=== PATIENT | female | born 1995 | race Caucasian/White ===

== ENCOUNTER 2018-12-26 04:10 | Inpatient (IN) | payer OTHER ==
[2018-12-26] MEDS ORDERED: ELECTROLYTE-148 SOLN 1,000 ML IV SCH (04:30)
[2018-12-26 05:38] LABS: HEMOGLOBIN 10.4 GM/dL (10.7-15.3); MCH 25.7 pg (25.7-33.7); RBC 4.04 M/mm3 (3.60-5.2); RDW 17.2 % (11.6-15.6)
[2018-12-26 05:43] LABS: BASO % 0.3 % (0-2.0); EOS % 0.9 % (0-4.5); LYMPH % 21.7 % (8-40); MCHC 32.5 g/dl (32.0-36.0); MEAN CELL VOLUME 79.2 fl (80-96); MEAN PLT VOLUME 8.4 fl (7.5-11.1); MONO % 5.4 % (3.8-10.2); NEUT % 71.7 % (42.8-82.8); PLATELET COUNT 288 K/MM3 (134-434); WHITE BLOOD COUNT 11.6 K/mm3 (4.0-10.0)
[2018-12-26 06:02] LABS: BLOOD UREA NITROGEN 16.2 mg/dL (7-18); CALCIUM 8.8 mg/dL (8.5-10.1); CREATININE 0.7 mg/dL (0.55-1.3)
[2018-12-26 06:22] VITALS: BMI 42.5
[2018-12-26 06:52] LABS: INR 1.03 (0.83-1.09); PROTHROMBIN TIME (PATIENT) 12.2 SEC (9.7-13.0)
[2018-12-26 06:54] LABS: ACTIVATED PTT 29.8 SECONDS (25.2-36.5)
--- NOTE | 2018-12-26 09:30 | HP ---
Past Medical History - Primary Care Physician PCP:: Ena Fall - Admission Chief Complaint: 23yo P0 with twins at 34.2wks came to L&D with c/o LUQ pain, no VB, no LOF, positive FM, no ctxns History of Present Illness: 1. Di/Di twin gestation with good dating 2. h/o c/section for NRFHR with subsequent demise - Stillborn History Source: Patient, Medical Record Limitations to Obtaining History: No Limitations - Past Medical History Cardiovascular: Yes: Murmur (benighn) Renal/: Yes: Hematuria (2018 negative w/up) ...: 2 ...Para: 1 ...Term: 1 ...: 0 ...Spon : 0 ...Induced : 0 ...Multiple Gestation: 1 ...LMP: 04/30/18 ... Weeks Gestation by Dates: 34.1 ...EDC by Dates: 02/04/19 - Past Surgical History Past Surgical History: Yes: Cholecystectomy, Hx Myomectomy: No Hx Transabdominal Cerclage: No - Smoking History Smoking history: Never smoked Have you smoked in the past 12 months: No - Alcohol/Substance Use Hx Alcohol Use: No Home Medications - Allergies Allergies/Adverse Reactions: Allergies Allergy/AdvReac Type Severity Reaction Status Date / Time No Known Allergies Allergy Verified 12/26/18 05:01 - Home Medications Home Medications: Ambulatory Orders Prenat 115/Iron Fum/Folic/Dss [ 19 Tablet] 1 tab PO DAILY 12/26/18 Family Disease History - Family Disease History Family Disease History: Other: Mother (SLE - ) Review of Systems - Review of Systems Constitutional: reports: No Symptoms Eyes: reports: No Symptoms HENT: reports: No Symptoms Neck: reports: No Symptoms Cardiovascular: reports: No Symptoms Respiratory: reports: No Symptoms Gastrointestinal: reports: No Symptoms Genitourinary: reports: No Symptoms Breasts: reports: No Symptoms Reported Musculoskeletal: reports: No Symptoms Integumentary: reports: No Symptoms Neurological: reports: No Symptoms Endocrine: reports: No Symptoms Hematology/Lymphatic: reports: No Symptoms Psychiatric: reports: No Symptoms Physical Exam - Maternity Vital Signs: Vital Signs Temperature 98.6 F 12/26/18 09:00 Pulse Rate 69 12/26/18 09:00 Respiratory Rate 20 06/29/19 09:00 Blood Pressure 128/78 12/26/18 09:00 O2 Sat by Pulse Oximetry (%) Constitutional: Yes: Well Nourished, No Distress, Calm Eyes: Yes: WNL HENT: Yes: WNL, Atraumatic, Normocephalic Neck: Yes: WNL, Supple, Trachea Midline Cardiovascular: Yes: WNL, Regular Rate and Rhythm Lungs: Clear to auscultation Breast(s): Yes: WNL - Abdominal Exam/OB Number of Fetuses: Multiple (Di/Di twins) Contractions: No Monitor Mode: External (Category 1 both) Heart Rate (range): 140s Category: I Accelerations: Uniform Decelerations: None - Vaginal Exam/OB Vaginal Bleediing: No Dilatation (cm): 0 Effacement (%): 0 Amniotic Membrane Status: Intact Station: -4 - Physical Exam Musculoskeletal: Yes: WNL Extremities: Yes: WNL Edema: No Integumentary: Yes: WNL Deep Tendon Reflex Grade: Normal +2 ...Motor Strength: WNL Psychiatric: Yes: WNL, Alert, Oriented - Labs Lab Results: CBC, BMP 12/26/18 05:15 12/26/18 05:15 Imaging - Results Ultrasound: Other (Reported verbally by Radiolody attending Twin A: GUILHERME 6.5 Twin B: GUILHERME 4.9) Assessment/Plan 23yo P1000 @ 34.2 weeks with twin gestation MF status reassuring in light of low GUILHERME finding will monitor NST Q shift on antepartum floor and Repeat official US by MFM on Friday am Case d/w who suggested to wait till Friday for official US and not to treat with steroids in case patient might need to be delivered prematurely since overall antepartum testing is currently reassuring
[2018-12-26] MEDS ORDERED: ACETAMINOPHEN 325 MG TABLET (FP) PO PRN (09:38)
[2018-12-26] MEDS ORDERED: D5W-LR W/ 20 UNITS OXYTOCIN 1,000 ML IV SCH (09:45)
[2018-12-26] MEDS: NORMAL SALINE FLUSH 0.9% 2.5 ML SYRINGE IVPUSH SCH ×2 (13:00→23:44)
[2018-12-27 07:47] LABS: BASO % 0.3 % (0-2.0); EOS % 1.7 % (0-4.5); HEMATOCRIT 32.9 % (32.4-45.2); HEMOGLOBIN 10.7 GM/dL (10.7-15.3); LYMPH % 22.3 % (8-40); MCH 26.1 pg (25.7-33.7); MCHC 32.6 g/dl (32.0-36.0); MEAN CELL VOLUME 79.8 fl (80-96); MEAN PLT VOLUME 8.6 fl (7.5-11.1); MONO % 6.6 % (3.8-10.2); NEUT % 69.1 % (42.8-82.8); RBC 4.12 M/mm3 (3.60-5.2); RDW 17.1 % (11.6-15.6); WHITE BLOOD COUNT 9.6 K/mm3 (4.0-10.0)
--- NOTE | 2018-12-27 08:12 | PN ---
Ante-Partal Exam - Subjective Subjective: Patient reports no acute complaints FM x 2 No VB or pain No chest pain, shortness of breath Vital Signs: Vital Signs Temperature 98.8 F 12/27/18 04:00 Pulse Rate 63 12/27/18 04:00 Respiratory Rate 20 12/27/18 04:00 Blood Pressure 124/57 L 12/27/18 04:00 O2 Sat by Pulse Oximetry (%) Bleeding: No Headache: No Visual changes: No Right upper quadrant pain: No - Contractions Contractions: No - Exam during Labor Heart Rate: 130 (x2) Variability: Moderate Category: I Monitor Accelerations: Present Monitor Decelerations: None - Assessment/Plan Assessment/Plan: 23 yo @ 35+ wks di/di twin gestation, suspect oligohydramnios for observation 1. No signs of labor 2. Category I FHT x 2 3. Will plan for repeat ultrasound and evaluation by MFM on Friday Will continue to monitor
[2018-12-27 08:56] LABS: PLATELET COUNT 277 K/MM3 (134-434)
[2018-12-27] MEDS: NORMAL SALINE FLUSH 0.9% 2.5 ML SYRINGE IVPUSH SCH ×2 (10:00→23:04)
[2018-12-27 11:29] LABS: ANISOCYTOSIS 0; HELMET CELLS 0; HOWELL-JOLLY BODIES 0; MACROCYTOSIS 0; OVALOCYTE 0; PLATELET ESTIMATE NORMAL; ROULEAU 0; SICKELED CELLS 0; TARGET CELLS 0; TEAR DROP CELLS 0; TOXIC GRANULATION 0
[2018-12-27] MEDS ORDERED: SENNOSIDES/DOCUSATE COMBO (SENNA PLUS) TABLET (UD) PO PRN (22:00)
[2018-12-28 08:58] VITALS: BP 117/78; PULSE 72; TEMP 98.6
[2018-12-28] MEDS: NORMAL SALINE FLUSH 0.9% 2.5 ML SYRINGE IVPUSH SCH (10:41)
--- NOTE | 2018-12-28 11:03 | PN ---
Ante-Partal Exam - Subjective Subjective: No complaints Vital Signs: Vital Signs Temperature 98.6 F 12/28/18 08:00 Pulse Rate 72 12/28/18 08:00 Respiratory Rate 18 12/28/18 08:00 Blood Pressure 117/78 12/28/18 08:00 O2 Sat by Pulse Oximetry (%) - Contractions Contractions: No - Exam during Labor Heart Rate: 140 (x2) Category: I Monitor Accelerations: Present Monitor Decelerations: None - Assessment/Plan Assessment/Plan: 23 yo @ 34+ wk di/di twins admitted for suspected oligo s/p repeat BPP and ultrasound today; MVP 5.7 and 6.6 respectively Reassuring tracing Reassuring BPP Plan for DC home with close monitoring Vaginal bleeding and labor precautions reviewed Kick counts reviewed
== END 2018-12-28 13:40 | disposition home or self-care (01) | DRG 566 ==
LOC: JDEL 04:10 → JLDR 04:10 → EDSTATUS 04:56 → J3W 09:51
PROVIDERS: ADMIT Obstetrics & Gynecology; ATTEND Obstetrics & Gynecology
DX: O30.003 Twin pregnancy, unspecified number of placenta and unspecified number of amniotic sacs, third trimester (principal); Z3A.34 34 weeks gestation of pregnancy
CPT/HCPCS: 36415; 80048; 85025; 85610; 85730; 86593; 86850; 86900; 86901

== ENCOUNTER 2019-01-15 06:05 | Inpatient (IN) | payer OTHER ==
[2019-01-15] MEDS ORDERED: ELECTROLYTE-148 SOLN 1,000 ML IV SCH (07:30)
[2019-01-15] MEDS ORDERED: CITRIC ACID/SODIUM CITRATE 30 ML UNIT-DOSE CUP PO ONE (07:30)
[2019-01-15] MEDS ORDERED: ELECTROLYTE-148 SOLN 500 ML IV ONE (07:30)
[2019-01-15 08:37] VITALS: BMI 44.1
[2019-01-15] MEDS ORDERED: ONDANSETRON 4 MG/2 ML VIAL IVPUSH PRN (09:03)
[2019-01-15] MEDS ORDERED: morphine SULFATE/PF 0.5 MG/ML (2cc Syringe - QUVA) EP ONE (09:03)
[2019-01-15] MEDS ORDERED: ceFAZolin SODIUM 1 GM VIAL ONE (09:13)
--- NOTE | 2019-01-15 09:19 | HP ---
Past Medical History - Admission History of Present Illness: 23 yo @ 37 1/7 wks by first trimester ultrasound, EDC 02/04/2019 complicated by: 1. Spontaneous dichorionic / diamniotic twin gestation Most recent EFW: 01/01/2019 A: 2628g 5-13 (66%ile); B: 2820g 6-3 (78%ile) 7% weight discordance 2. Obesity - starting BMI 36 STOP BANG score 2 (low risk) Early GCT WNL (116) Elevated GCT at 26 wks, normal GTT 42 lb total weight gain 3. Prior delivery 4. Prior full term loss (40 wks) 5. Travel to [place] at 11 wks Negative Zika Panel 6. BP elevation in first trimester negative PEC labs, early 24 H urine 201 (14 wks) BPs within normal range in second and third trimester Patient presents for scheduled repeat delivery, per [facility] recommendation at 37-38 wks. She reports movement, denies leakage of fluid or vaginal bleeding. History Source: Patient Limitations to Obtaining History: No Limitations - Past Medical History Cardiovascular: Yes: Murmur (benighn) Pulmonary: No: Asthma Renal/: Yes: Hematuria (2018 negative w/up) ...: 2 ...Para: 1 ...Term: 1 ...: 0 ...Spon : 0 ...Induced : 0 ...Multiple Gestation: 0 ...LMP: 04/30/18 ... Weeks Gestation by Dates: 37.1 ...EDC by Dates: 02/04/19 ...EDC by Sono: 02/04/19 Heme/Onc: No: Anemia - Past Surgical History Past Surgical History: Yes: Cholecystectomy, Hx Myomectomy: No Hx Transabdominal Cerclage: No - Smoking History Smoking history: Never smoked Have you smoked in the past 12 months: No - Alcohol/Substance Use Hx Alcohol Use: No History of Substance Use: reports: None - Social History History of Recent Travel: Yes (11 weeks, negative zika panel ) Home Medications - Allergies Allergies/Adverse Reactions: Allergies Allergy/AdvReac Type Severity Reaction Status Date / Time No Known Allergies Allergy Verified 12/26/18 05:01 - Home Medications Home Medications: Ambulatory Orders Prenat 115/Iron Fum/Folic/Dss [ 19 Tablet] 1 tab PO DAILY 12/26/18 Family Disease History - Family Disease History Family Disease History: Other: Mother (SLE - ) Physical Exam - Maternity Vital Signs: Vital Signs Temperature 98.5 F 01/15/19 06:15 Pulse Rate 63 01/15/19 06:15 Respiratory Rate 20 01/15/19 06:15 Blood Pressure 138/68 01/15/19 06:15 O2 Sat by Pulse Oximetry (%) Constitutional: Yes: Well Nourished, No Distress, Calm Cardiovascular: Yes: Regular Rate and Rhythm Lungs: Clear to auscultation - Abdominal Exam/OB Number of Fetuses: Multiple Category: I - Physical Exam Edema: Yes Edema: LLE: 1+, RLE: 1+ Psychiatric: Yes: Alert, Oriented - Labs Lab Results: PNL: O positive, antibody negative; RPR NR; HIV negative; HBsAg negative; HCV negative; Hg Arya AA; Sequential 1@2 wnl; Inheritest WNL; early GCT WNL; elevated 26 wk GCT, normal GTT; Parvo immune; GBS negative Hemorrhage Risk Assessment - Risk Factors Medium Risk Factors: Yes: Prior , uterine surgery,or multiple laparotomies, Multiple gestation Risk Score: 2 Risk Level: High Risk Assessment/Plan 23 yo @ 37 1/7 wks, for repeat delivery 1. Admit to L&D 2. Routine labs reviewed 3. Ancef salon customer experience specialist to OR 4. Plan for Lovenox PP for DVT prophylaxis 5. Category I FHT 6. Will proceed to OR
[2019-01-15] MEDS ORDERED: OXYTOCIN 20 UNITS in 0.9% NS 20 UNIT/1,000 ML INFUS.BAG IV ONE (10:07)
[2019-01-15] MEDS ORDERED: OXYTOCIN 10 UNITS/ML VIAL ONE (10:09)
[2019-01-15] MEDS ORDERED: oxyCODONE HCL 5 MG TABLET PO PRN ×2 (10:55)
[2019-01-15] MEDS ORDERED: METHYLERGONOVINE MALEATE 0.2 MG/1 ML AMP IM PRN (10:55)
[2019-01-15] MEDS ORDERED: OXYTOCIN 20 UNITS in 0.9% NS 20 UNIT/1,000 ML INFUS.BAG IV SCH (11:00)
[2019-01-15 11:36] LABS: VENOUS PC02 42.5 mmHg (41-51); VENOUS PO2 34.9 mmHg (30-40)
[2019-01-15 11:40] LABS: ARTERIAL BLD GAS O2 SATURATION 36.7 % (95-98); ARTERIAL BLOOD GAS BASE EXCESS -4.4 meq/l (-2-2); ARTERIAL BLOOD GAS PCO2 56.2 mmHg (35-45); ARTERIAL BLOOD GAS pH 7.25 (7.35-7.45)
[2019-01-15 11:44] LABS: VENOUS PC02 44.1 mmHg (41-51)
[2019-01-15 11:47] LABS: ARTERIAL BLD GAS O2 SATURATION 23.1 % (95-98); ARTERIAL BLOOD GAS BASE EXCESS -3.6 meq/l (-2-2); ARTERIAL BLOOD GAS PCO2 56.6 mmHg (35-45); ARTERIAL BLOOD GAS pH 7.26 (7.35-7.45)
[2019-01-15 11:57] LABS: VENOUS PH 7.33 (7.31-7.41)
[2019-01-15 11:59] LABS: VENOUS PH 7.32 (7.31-7.41); VENOUS PO2 28.8 mmHg (30-40)
[2019-01-15 12:09] LABS: ARTERIAL BLOOD GAS PO2 16.9 mmHg (80-105)
[2019-01-15 12:10] LABS: ARTERIAL BLOOD GAS PO2 21.4 mmHg (80-105)
[2019-01-15] MEDS ORDERED: IBUPROFEN 800 MG/8 ML IJ IVPB ONE (13:28)
[2019-01-15] MEDS: IBUPROFEN 800 MG/8 ML IJ IVPB PRN (13:50)
--- NOTE | 2019-01-15 15:57 | PN ---
Delivery - Delivery Type of Anesthesia: Spinal Episiotomy/Laceration: None EBL (cc): 600 Delivery, Single - [place] Feeding Plan Initial Plan: Elected not to breastfeed exclusively throughout hospitalization Delivery, Multiple Births - Stages of Labor Delivery Baby "A" Date: 01/15/19 Time: 10:13 Delivery Baby "B" Date: 01/15/19 Time: 10:15 - Condition of Multiple Births 1 (A) Reinforcing Metal Worker/M48 M60 Armor Crewman Present: Yes Reinforcing Metal Worker: Brock Arambula Infant Gender: Male Weight: 6 lb 11 oz Total Hours ROM (HRS/MINS): 4 MIN [place] 2 (B) Reinforcing Metal Worker/M48 M60 Armor Crewman Present: Yes Reinforcing Metal Worker: Brock Arambula Infant Gender: Male Weight: 7 lb 4 oz Position: Right, OT Total Hours ROM (HRS/MINS): 2 MIN Placenta: Yes: Expressed - 1 Minute Score: 9 5 Minutes Score: 9 2 (B) 1 Minute Score: 9 2 (B) 5 Minutes Score: 9 Remarks - Remarks Remarks: Surgeon: David | Assist: Eufemia | Anesthesia : Joyo EBL: 600 Findings: A: male, Transverse back down, verted to breech, 9,9; wt 6lb 11 o, 19.5 inches, nuchal cord B male, cephalic, ROT, 9,9; wt 7 lb 4 oz; 19.5 inches, nuchal cord; Adhesions from omentum to anterior abdominal wall and uterus, uterine window noted, normal bilateral fallopian tubes and ovaries Dictation: [id number]
[2019-01-16] MEDS: IBUPROFEN 800 MG/8 ML IJ IVPB PRN (05:14)
[2019-01-16 08:35] LABS: BASO % 0.2 % (0-2.0); HEMATOCRIT 30.7 % (32.4-45.2); MCH 25.4 pg (25.7-33.7); MCHC 32.6 g/dl (32.0-36.0); MEAN CELL VOLUME 77.9 fl (80-96); MEAN PLT VOLUME 8.7 fl (7.5-11.1); MONO % 6.8 % (3.8-10.2); PLATELET COUNT 235 K/MM3 (134-434); RBC 3.93 M/mm3 (3.60-5.2); RDW 17.5 % (11.6-15.6); WHITE BLOOD COUNT 10.6 K/mm3 (4.0-10.0)
[2019-01-16] MEDS: ENOXAPARIN NA (PORCINE) 40 MG/0.4 ML DISP.SYRIN SQ SCH (09:39)
[2019-01-16] MEDS: PRENATAL VITAMINS W/ FOLIC ACID TABLET (FP) PO SCH (10:00)
[2019-01-16] MEDS ORDERED: DIPHTH,PERTUSS(ACELL),TET 0.5 ML DISP.SYRIN IM ONE (10:00)
--- NOTE | 2019-01-16 10:11 | PN ---
Post Progress Note - Subjective Subjective: Patient without acute complaints. Reports tolerating oral intake without nausea or vomiting. Ambulating without dizziness. Denies fevers or chills. Pain well controlled with oral pain medication. Pumping/breast feeding without issue. Passing flatus. Post Day: 1 Type of Delivery: Repeat C/S Vital Signs: Vital Signs Temperature 98.7 F 01/16/19 08:00 Pulse Rate 69 01/16/19 08:00 Respiratory Rate 18 01/16/19 08:00 Blood Pressure 130/69 01/16/19 08:00 O2 Sat by Pulse Oximetry (%) 99 01/15/19 13:55 Breast Exam: Yes: Soft Uterus: Yes: Fundus Firm, Fundus below umbilicus, Non-tender Incision: Yes: Dressing dry and intact Abdomen/GI: Yes: Abdomen soft, Passing flatus, Tolerating PO Lochia: Yes: Rubra Lochia, amount: Small Extremities: Yes: Calves non-tender Perineum: Yes: Intact Activity: Ambulating - Labs Labs: CBC WBC 10.6 K/mm3 (4.0-10.0) H 01/16/19 07:15 RBC 3.93 M/mm3 (3.60-5.2) 01/16/19 07:15 Hgb 10.0 GM/dL (10.7-15.3) L 01/16/19 07:15 Hct 30.7 % (32.4-45.2) L 01/16/19 07:15 MCV 77.9 fl (80-96) L 01/16/19 07:15 MCH 25.4 pg (25.7-33.7) L 01/16/19 07:15 MCHC 32.6 g/dl (32.0-36.0) 01/16/19 07:15 RDW 17.5 % (11.6-15.6) H 01/16/19 07:15 Plt Count 235 K/MM3 (134-434) 01/16/19 07:15 MPV 8.7 fl (7.5-11.1) 01/16/19 07:15 Absolute Neuts (auto) 8.3 K/mm3 (1.5-8.0) H 01/16/19 07:15 Neutrophils % 78.0 % (42.8-82.8) 01/16/19 07:15 Lymphocytes % 14.0 % (8-40) 01/16/19 07:15 Monocytes % 6.8 % (3.8-10.2) 01/16/19 07:15 Eosinophils % 1.0 % (0-4.5) 01/16/19 07:15 Basophils % 0.2 % (0-2.0) 01/16/19 07:15 Nucleated RBC % 0 % (0-0) 01/16/19 07:15 Assessment/Plan 23yo female s/p repeat LT C/S, doing well stable, afebrile. The pt is asymptomatic for s/sxs of anemia. care instructions reviewed. Continue routine postop care. Ambulation encouraged.
--- NOTE | 2019-01-16 10:42 | OP ---
DATE OF OPERATION: 01/15/2019 ATTENDING PHYSICIAN RESPONSIBLE FOR SIGNING REPORT: Nicolette Rollins MD SURGEON: Nicolette Rollins MD RAYMOND MILL OPERATOR: Ena Fall MD ANESTHESIOLOGIST: Tim Judge MD ANESTHESIA TYPE: Spinal. SURGERY: Repeat delivery via Pfannenstiel skin incision of twins. URINE OUTPUT: 600 mL. FINDINGS: Baby A male, transverse, back down, inverted to breech, Apgars 9, 9; weight 6 pounds, 1 ounce, 19.5 inches; nuchal cord noted. Baby B, cephalic, ROT position, Apgars 9, 9, weight 7 pounds 4 ounces, 19.5 inches, nuchal cord noted. Adhesions noted from omentum to anterior abdominal wall and uterus. Uterine window was noted on exam, and bilateral fallopian tubes and ovaries normal. INDICATIONS: Patient is a 23-year-old 2, para 0, with prior for repeat delivery of twins at 37 weeks per Maternal [facility] recommendations. She was counseled regarding risks, benefits, alternatives, and complications of procedure including infection, bleeding, damage to surrounding organs. She expressed understanding and was brought to the operating room. DESCRIPTION OF PROCEDURE: When anesthesia was found to be adequate, patient was prepped and draped in a normal sterile fashion, placed in dorsal supine position with a leftward tilt. An approximately 11-cm skin incision was made along the previous scar and carried down to the underlying rectus fascia using the Bovie electrocautery. The fascial incision was nicked in the midline, extended laterally using Bovie electrocautery. Anterior portion of the fascial incision was tented up using Jamison clamps, resected off the underlying rectus muscles using the Peres scissors. Attention was brought to the superior portion of the incision, where in similar fashion, it was tented up using Jamison clamps, and dissected off the underlying rectus muscles using the Peres scissors. The rectus muscles were in the midline with the knife. The peritoneum was entered sharply using Metzenbaum scissors. Dense adhesions noted from the omentum to the anterior abdominal wall , which were taken down using Bovie electrocautery. Manish O Retractor was placed in the abdominal cavity for proper visualization. Uterus was noted to have a window in the lower uterine segment. Hysterotomy was performed. Clear fluid was noted. Infant was noted to be transverse, back down, inverted to breech. Breech was delivered; shoulders, body, and head were delivered without difficulty. Cord was clamped and cut. Cord blood and cord gasses were collected and sent, and infant was handed to waiting NICU staff. Attention was brought to the 2nd sac. Amniotomy was performed. Clear fluid was noted. was found to be cephalic position. Infants head was brought to the hysterotomy site followed by shoulders and body without difficulty. Nuchal cord noted and reduced. Cord blood and cord gasses were collected and sent. was handed to waiting NICU staff. The placenta was manually extracted. The uterus was cleared of all clot and debris. The uterus was closed using 0 Biosyn in a running layer, 2nd layer as an imbricating layer. Good hemostasis was noted. Copious irrigation was performed. Bilateral fallopian tubes and ovaries were noted to be normal appearing. The peritoneum was then reapproximated using 2-0 Biosyn in a running fashion. Rectus muscles were reapproximated using 0 Biosyn in an interrupted fashion. The fascia was closed using 0 Vicryl in a running fashion. The subcutaneous fat was closed using 2-0 Vicryl in an interrupted fashion. The skin was reapproximated using the V-Loc suture. The patient tolerated the procedure well. Estimated blood loss was 600 mL. Patient was brought to the recovery room in stable condition. NICOLETTE ROLLINS M.D. [id number] MTDD
[2019-01-16] MEDS ORDERED: BISACODYL 10 MG SUPP.RECT RC PRN (10:55)
[2019-01-16] MEDS: IBUPROFEN 600 MG TABLET (FP) PO PRN ×2 (13:27→22:01)
[2019-01-16] MEDS: ACETAMINOPHEN 325 MG TABLET (FP) PO PRN ×2 (13:28→22:00)
[2019-01-16] MEDS: SIMETHICONE 80 MG TAB.CHEW (FP) PO PRN ×2 (13:29→22:01)
[2019-01-16] MEDS: SENNOSIDES/DOCUSATE COMBO (SENNA PLUS) TABLET (UD) PO PRN (22:01)
[2019-01-17] MEDS: IBUPROFEN 600 MG TABLET (FP) PO PRN ×2 (08:05→18:36)
[2019-01-17] MEDS: SIMETHICONE 80 MG TAB.CHEW (FP) PO PRN ×2 (08:06→18:37)
[2019-01-17] MEDS: ACETAMINOPHEN 325 MG TABLET (FP) PO PRN ×2 (08:06→18:37)
--- NOTE | 2019-01-17 08:11 | PN ---
Post Progress Note - Subjective Subjective: Patient without acute complaints. Reports tolerating oral intake without nausea or vomiting. Ambulating without dizziness. Denies fevers or chills. Pain well controlled with oral pain medication. without difficulty. Passing flatus. Post Day: 1 Type of Delivery: Repeat C/S Vital Signs: Vital Signs Temperature 98.7 F 01/16/19 21:50 Pulse Rate 74 01/16/19 21:50 Respiratory Rate 20 01/16/19 21:50 Blood Pressure 140/87 01/16/19 21:50 O2 Sat by Pulse Oximetry (%) 99 01/15/19 13:55 Breast Exam: Yes: Soft Uterus: Yes: Fundus Firm, Fundus below umbilicus Incision: Yes: Sutures intact. No: Redness, Oozing Abdomen/GI: Yes: Abdomen soft, Tender (mild incisional). No: Abdominal Distention Lochia: Yes: Serosa Lochia, amount: Small Extremities: Yes: Calves non-tender, Edema (+1) Activity: Ambulating - Labs Labs: CBC WBC 10.6 K/mm3 (4.0-10.0) H 01/16/19 07:15 RBC 3.93 M/mm3 (3.60-5.2) 01/16/19 07:15 Hgb 10.0 GM/dL (10.7-15.3) L 01/16/19 07:15 Hct 30.7 % (32.4-45.2) L 01/16/19 07:15 MCV 77.9 fl (80-96) L 01/16/19 07:15 MCH 25.4 pg (25.7-33.7) L 01/16/19 07:15 MCHC 32.6 g/dl (32.0-36.0) 01/16/19 07:15 RDW 17.5 % (11.6-15.6) H 01/16/19 07:15 Plt Count 235 K/MM3 (134-434) 01/16/19 07:15 MPV 8.7 fl (7.5-11.1) 01/16/19 07:15 Absolute Neuts (auto) 8.3 K/mm3 (1.5-8.0) H 01/16/19 07:15 Neutrophils % 78.0 % (42.8-82.8) 01/16/19 07:15 Lymphocytes % 14.0 % (8-40) 01/16/19 07:15 Monocytes % 6.8 % (3.8-10.2) 01/16/19 07:15 Eosinophils % 1.0 % (0-4.5) 01/16/19 07:15 Basophils % 0.2 % (0-2.0) 01/16/19 07:15 Nucleated RBC % 0 % (0-0) 01/16/19 07:15 Assessment/Plan 23 yo yo POD # 1 s/p repeat CD, afebrile, vital signs stable, doing well 1. Continue routine postoperative care. 2. Encourage ambulation and incentive spirometer use 3. Continue oral pain medication 4. Anticipate discharge home postoperative day #3 or #4
[2019-01-17] MEDS: ENOXAPARIN NA (PORCINE) 40 MG/0.4 ML DISP.SYRIN SQ SCH (09:37)
[2019-01-17] MEDS: PRENATAL VITAMINS W/ FOLIC ACID TABLET (FP) PO SCH (09:37)
--- NOTE | 2019-01-17 10:16 | PN ---
Progress Note (short form) - Note Progress Note: Anesthesia post op note, POD#2 S/P under spinal with duramorph. pat seen and examined. VSS, ambulating. Pain under control. No apparent post anesthesia complications.
[2019-01-18] MEDS: SIMETHICONE 80 MG TAB.CHEW (FP) PO PRN ×2 (08:00→20:45)
[2019-01-18] MEDS: IBUPROFEN 600 MG TABLET (FP) PO PRN ×2 (08:01→20:46)
[2019-01-18] MEDS: ACETAMINOPHEN 325 MG TABLET (FP) PO PRN (08:02)
[2019-01-18] MEDS ORDERED: oxyCODONE HCL 5 MG TABLET PO PRN (08:17)
[2019-01-18 08:22] LABS: BASO % 0.5 % (0-2.0); EOS % 3.6 % (0-4.5); HEMATOCRIT 29.5 % (32.4-45.2); HEMOGLOBIN 9.4 GM/dL (10.7-15.3); MCH 25.2 pg (25.7-33.7); MCHC 32.1 g/dl (32.0-36.0); MEAN CELL VOLUME 78.5 fl (80-96); MEAN PLT VOLUME 8.7 fl (7.5-11.1); MONO % 6.1 % (3.8-10.2); NEUT % 67.8 % (42.8-82.8); PLATELET COUNT 270 K/MM3 (134-434); RBC 3.75 M/mm3 (3.60-5.2); RDW 18.1 % (11.6-15.6); WHITE BLOOD COUNT 9.8 K/mm3 (4.0-10.0)
[2019-01-18] MEDS: oxyCODONE HCL 5 MG TABLET PO PRN ×2 (08:59→20:46)
--- NOTE | 2019-01-18 09:19 | PN ---
Post Progress Note - Subjective Subjective: Patient without acute complaints. Reports tolerating oral intake without nausea or vomiting. Ambulating without dizziness. Denies fevers or chills. Pain well controlled with oral pain medication. without difficulty. Passing flatus. Post Day: 3 Type of Delivery: Repeat C/S Vital Signs: Vital Signs Temperature 99 F 01/17/19 21:37 Pulse Rate 58 L 01/17/19 21:37 Respiratory Rate 18 01/17/19 21:37 Blood Pressure 127/57 L 01/17/19 21:37 O2 Sat by Pulse Oximetry (%) 99 01/15/19 13:55 Breast Exam: Yes: Engorged Uterus: Yes: Fundus Firm, Fundus below umbilicus Incision: Yes: Sutures intact. No: Redness, Oozing Abdomen/GI: Yes: Abdomen soft, Abdominal Distention. No: Tender, Passing flatus Lochia: Yes: Rubra Lochia, amount: Small Extremities: Yes: Calves non-tender, Edema (+1) Activity: Ambulating - Labs Labs: CBC WBC 9.8 K/mm3 (4.0-10.0) 01/18/19 07:45 RBC 3.75 M/mm3 (3.60-5.2) 01/18/19 07:45 Hgb 9.4 GM/dL (10.7-15.3) L 01/18/19 07:45 Hct 29.5 % (32.4-45.2) L 01/18/19 07:45 MCV 78.5 fl (80-96) L 01/18/19 07:45 MCH 25.2 pg (25.7-33.7) L 01/18/19 07:45 MCHC 32.1 g/dl (32.0-36.0) 01/18/19 07:45 RDW 18.1 % (11.6-15.6) H 01/18/19 07:45 Plt Count 270 K/MM3 (134-434) 01/18/19 07:45 MPV 8.7 fl (7.5-11.1) 01/18/19 07:45 Absolute Neuts (auto) 6.7 K/mm3 (1.5-8.0) 01/18/19 07:45 Neutrophils % 67.8 % (42.8-82.8) 01/18/19 07:45 Lymphocytes % 22.0 % (8-40) D 01/18/19 07:45 Monocytes % 6.1 % (3.8-10.2) 01/18/19 07:45 Eosinophils % 3.6 % (0-4.5) D 01/18/19 07:45 Basophils % 0.5 % (0-2.0) 01/18/19 07:45 Nucleated RBC % 0 % (0-0) 01/18/19 07:45 Assessment/Plan 23 yo yo POD # 3 s/p repeat CD, afebrile, vital signs stable, doing well 1. Continue routine postoperative care. 2. Encourage ambulation and incentive spirometer use 3. Continue oral pain medication 4. Anticipate discharge home postoperative day #4
--- NOTE | 2019-01-18 09:22 | DS ---
Physical Exam-HYDROELECTRIC OPERATOR Vital Signs: Vital Signs Temperature 99 F 01/17/19 21:37 Pulse Rate 58 L 01/17/19 21:37 Respiratory Rate 18 01/17/19 21:37 Blood Pressure 127/57 L 01/17/19 21:37 O2 Sat by Pulse Oximetry (%) 99 01/15/19 13:55 Labs: CBC, BMP 01/18/19 07:45 Delivery - Delivery Type of Anesthesia: Spinal Episiotomy/Laceration: None EBL (cc): 600 Delivery, Single - Feeding Plan Initial Plan: Elected not to breastfeed exclusively throughout hospitalization Delivery, Multiple Births - Stages of Labor Delivery Baby "A" Date: 01/15/19 Time: 10:13 Delivery Baby "B" Date: 01/15/19 Time: 10:15 - Condition of Multiple Births 1 (A) Vacuum Repairer/Surveillance Officer Present: Yes Vacuum Repairer: Brock Arambula Gender: Male Weight: 6 lb 11 oz Total Hours ROM (HRS/MINS): 4 MIN 2 (B) Vacuum Repairer/Surveillance Officer Present: Yes Vacuum Repairer: Brock Arambula Infant Gender: Male Weight: 7 lb 4 oz Position: Right, OT Total Hours ROM (HRS/MINS): 2 MIN - 1 Minute Score: 9 5 Minutes Score: 9 2 (B) 1 Minute Score: 9 [place] 2 (B) 5 Minutes Score: 9 Discharge Summary Reason For Visit: ADMIT C/S Current Active Problems Status post repeat low transverse section (Acute) Procedures: Principal: delivery Hospital Course: Patient was admitted for routine delivery POD # 1 patient ambulated, voiding, passing gas, tolerating oral intake and with adequate pain control. Noted to have mild asymptomatic anemia She fulfilled all criteria for discharge POD #3 Condition: Good - Instructions Diet, Activity, Other Instructions: Physical activity Resume your normal everyday activity as tolerated no heavy lifting or exercise until seen by your surgeon. You may walk unlimited arjun of and climb stairs. You may resume driving the car when you feel safe and comfortable behind the wheel. No sexual activity as instructed. Wound care If you have a bandage, leave it on, and keep dry for 48-72 hours. After that time discard the outer bandage. If they are tapes on the skin under the out of bandage leave them in place. They will peel off in the next 7 to 10 days. Do Not Peel them off. You may shower the day after surgery. If there are tapes present on the skin, you may shower over them. Diet There are no dietary restrictions. Eat healthy, high-fiber foods. Drink 6 to 8 glasses of liquid each day. This will assist in keeping your bowels are regular. Pain management You may take Tylenol or acetaminophen or Ibuprofen (for example, Motrin, Advil etc.) from my pain prescription medication is ordered should be taken as prescribed for moderate to severe pain. Call MD for any of the following: Severe pain not relieved by medication Fever of 101 or higher Excessive bleeding or drainage on dressing Inability to urinate Referrals: Viviana Hernandez MD [Staff Physician] - Disposition: HOME - Home Medications Comprehensive Discharge Medication List: Ambulatory Orders Prenat 115/Iron Fum/Folic/Dss [ 19 Tablet] 1 tab PO DAILY 12/26/18
[2019-01-18] MEDS: PRENATAL VITAMINS W/ FOLIC ACID TABLET (FP) PO SCH (10:49)
[2019-01-18] MEDS: ENOXAPARIN NA (PORCINE) 40 MG/0.4 ML DISP.SYRIN SQ SCH (10:50)
[2019-01-18] MEDS ORDERED: valACYclovir HCL 500 MG TABLET (FP) PO ONE (12:45)
[2019-01-18] MEDS: valACYclovir HCL 500 MG TABLET (FP) PO SCH ×2 (13:37→21:21)
[2019-01-18] MEDS: SENNOSIDES/DOCUSATE COMBO (SENNA PLUS) TABLET (UD) PO PRN (20:48)
[2019-01-18 22:24] VITALS: PULSE 54
[2019-01-19] MEDS: IBUPROFEN 600 MG TABLET (FP) PO PRN (06:30)
[2019-01-19] MEDS: ACETAMINOPHEN 325 MG TABLET (FP) PO PRN (06:30)
[2019-01-19] MEDS: oxyCODONE HCL 5 MG TABLET PO PRN (08:34)
[2019-01-19] MEDS: ENOXAPARIN NA (PORCINE) 40 MG/0.4 ML DISP.SYRIN SQ SCH (10:00)
[2019-01-19] MEDS: PRENATAL VITAMINS W/ FOLIC ACID TABLET (FP) PO SCH (10:00)
[2019-01-19] MEDS: valACYclovir HCL 500 MG TABLET (FP) PO SCH (10:00)
--- NOTE | 2019-01-19 10:01 | PN ---
Post Progress Note - Subjective Subjective: Patient without acute complaints. Reports tolerating oral intake without nausea or vomiting. Ambulating without dizziness. Denies fevers or chills. Pain well controlled with oral pain medication. without difficulty. Passing flatus. Post Day: 4 Type of Delivery: Repeat C/S Vital Signs: Vital Signs Temperature 98.5 F 01/18/19 22:00 Pulse Rate 54 L 01/18/19 22:00 Respiratory Rate 18 01/18/19 22:00 Blood Pressure 129/75 01/18/19 22:00 O2 Sat by Pulse Oximetry (%) 99 01/15/19 13:55 Breast Exam: Yes: Soft Uterus: Yes: Fundus Firm, Fundus @ umbilicus Incision: Yes: Sutures intact Abdomen/GI: Yes: Abdomen soft Lochia, amount: Small Extremities: Yes: Calves non-tender Perineum: Yes: Intact Activity: Ambulating - Labs Labs: CBC WBC 9.8 K/mm3 (4.0-10.0) 01/18/19 07:45 RBC 3.75 M/mm3 (3.60-5.2) 01/18/19 07:45 Hgb 9.4 GM/dL (10.7-15.3) L 01/18/19 07:45 Hct 29.5 % (32.4-45.2) L 01/18/19 07:45 MCV 78.5 fl (80-96) L 01/18/19 07:45 MCH 25.2 pg (25.7-33.7) L 01/18/19 07:45 MCHC 32.1 g/dl (32.0-36.0) 01/18/19 07:45 RDW 18.1 % (11.6-15.6) H 01/18/19 07:45 Plt Count 270 K/MM3 (134-434) 01/18/19 07:45 MPV 8.7 fl (7.5-11.1) 01/18/19 07:45 Absolute Neuts (auto) 6.7 K/mm3 (1.5-8.0) 01/18/19 07:45 Neutrophils % 67.8 % (42.8-82.8) 01/18/19 07:45 Lymphocytes % 22.0 % (8-40) D 01/18/19 07:45 Monocytes % 6.1 % (3.8-10.2) 01/18/19 07:45 Eosinophils % 3.6 % (0-4.5) D 01/18/19 07:45 Basophils % 0.5 % (0-2.0) 01/18/19 07:45 Nucleated RBC % 0 % (0-0) 01/18/19 07:45 Assessment/Plan 23yo P2 s/p Repeat LST c/section VSS, Afebrile Doing well D/C home RTO in 1 wk NPV x 6wks
[2019-01-19 11:19] VITALS: BP 145/58; TEMP 99.4
--- NOTE | 2019-01-22 11:46 | PATH ---
Surgical Pathology Report Patient Name: GENIE POOL [facility]. Rec. #: [id number] /Age/Gender: 1995 (Age: 23) / F Account: [id number] Location: 3 [facility] DIRECTOR Taken: 01/15/2019 Received: 01/18/2019 Reported: 01/22/2019 Physicians: Viviana Hernandez Specimen(s) Received PLACENTA,TWIN Clinical History , twin gestation, obesity, history of still born delivery, elevated 1 hour glucose test, 3 hour GTT WNL, elevated BP Final Diagnosis TWIN PLACENTA, SECTION: 910 G DIAMNIOTIC DICHORIONIC FUSED DISC TWIN PLACENTA. PLACENTA A, THIRD TRIMESTER PLACENTA WITH TRIVASCULAR UMBILICAL CORD AND UNREMARKABLE PLACENTAL MEMBRANES. PLACENTA B, THIRD TRIMESTER PLACENTA WITH TRIVASCULAR UMBILICAL CORD AND UNREMARKABLE PLACENTAL MEMBRANES. Electronically Signed Maria Eugenia Tim M.D. Gross Description Received in formalin labeled "placenta," is a 910 g twin placenta comprised of 2 fused discs, by dividing membranes. The dividing membranes are uriarte and opaque. There is 1 clamp marking the umbilical cord of placenta "A" and 2 clamps marking the umbilical cord of placenta "B", per the surgeon. Placenta "A" is 17.5 x 15.0 x 2.7 cm. The attached membranes are uriarte, translucent with focal opacities and insert marginally. The umbilical cord measures 11 cm in length and averages 1.2 cm in diameter. The cord inserts eccentrically, 5.5 cm to the nearest margin. No true knots or strictures are identified. The cut surface of the umbilical cord reveals 3 vessels. The surface is barlow blue with moderate fibrin deposition and appropriate caliber vessels. The maternal surface is red-brown with focal defects. Sectioning reveals red-brown, spongy parenchyma. No lesions are identified. Placenta "B" is 15.5 x 15.0 x 2.5 cm. The attached membranes are uriarte, translucent with focal opacities and insert marginally. The umbilical cord measures 12 cm in length and averages 1.1 cm diameter. The cord inserts eccentrically, 2.5 cm to the nearest margin. No true knots or strictures are identified. Cut surface of the umbilical cord reveals 3 vessels. The surface is gonzalez blue with minimal fibrin deposition and appropriate caliber vessel. The maternal surface is red-brown with focal defects. Sectioning reveals red-brown, spongy parenchyma. No lesions are identified. [employer] sections are submitted in 7 cassettes as follows: 1-placenta "A" membrane roll and umbilical cord; 2-3-full thickness sections of placenta "A"; 4-dividing membranes; 5-placenta "B" membrane roll and umbilical cord; 0-6-whst-thickness sections of placenta "B". 01/20/[address] [facility]01/20/2019
== END 2019-01-19 13:00 | disposition home or self-care (01) | DRG 540 ==
LOC: JLDR 06:05 → J3W 13:44
PROVIDERS: ADMIT Obstetrics & Gynecology; ATTEND Obstetrics & Gynecology
PROC: 10D00Z1 Extraction of Products of Conception, Low, Open Approach (ICD-10-PCS; principal; 2019-01-15)
DX: O30.043 Twin pregnancy, dichorionic/diamniotic, third trimester (principal); O69.81X0 Labor and delivery complicated by cord around neck, without compression, not applicable or unspecified; O99.214 Obesity complicating childbirth; Z3A.38 38 weeks gestation of pregnancy; Z37.2 Twins, both liveborn
CPT/HCPCS: 36415; 36600; 82803; 85025; 90715